=== PATIENT | male | born 1950 | race African-American/Black ===

== ENCOUNTER → 2018-11-27 | Outpatient (CLI) | payer MEDICARE, OTHER ==
--- NOTE | 2018-11-27 11:30 | RADIOLOGY REPORT (SQ) ---
EXAM DESCRIPTION: MRI LT UPPER JOINT WITHOUT COMPLETED DATE/TIME: 11/27/2018 9:56 am REASON FOR STUDY: L SHOULDER PAIN M25.512 PAIN IN LEFT SHOULDER COMPARISON: None. TECHNIQUE: Left shoulder images acquired and stored on PACS. Multiplanar imaging to include fat sens itive sequences such as T1, water sensitive sequences such as FST2/STIR, cartilage sensitive sequence s such as FSPD/gradient-echo sequences. LIMITATIONS: Patient motion. FINDINGS: BONE MARROW AND CORTEX: No worrisome bone lesions or marrow replacement. No occult fractur es. JOINT OR BURSAL EFFUSION: Small amount of fluid in the subdeltoid bursa containing loose bodies or hy droxyapatite. GLENO-HUMERAL ARTICULATION: Intact. Central cartilage loss. ACROMION AND AC JOINT: Type 2 acromion. Moderate AC joint arthropathy. ROTATOR CUFF AND INTERVAL: Cuff musculature is symmetric. Increased signal anterior supraspinatus co nsistent with full-thickness partial width tear. No rotator interval tear. No rotator interval thickening to suggest adhesive capsulitis. LABRUM AND BICEPS LABRAL COMPLEX: Increased signal in the biceps anchor. No acute tear identified. Distal biceps intact. REMAINDER OF LABRUM AND IGHL : Intact. PERIARTICULAR AND ADJACENT SOFT TISSUES: No masses or abnormal nodes. OTHER: No other significant finding. IMPRESSION: 1. Motion artifact. Partial width full-thickness tear anterior supraspinatus tendon. 2. Subdeltoid bursal fluid containing loose bodies or hydroxyapatite. 3. AC joint arthropathy. TECHNICAL DOCUMENTATION: JOB ID: [id number] [employer]- All Rights Reserved Reading location - IP/workstation name: [email or web address]
== END ==
LOC: RAD 09:12
PROVIDERS: ATTEND Orthopaedic Surgery Sports Medicine
DX: M25.512 Pain in left shoulder (principal)

== ENCOUNTER → 2018-11-30 | Outpatient (CLI) | payer MEDICARE, OTHER ==
[2018-11-30 11:37] LABS: ABSOLUTE EOSINOPHILS # (AUTO) 0.2 10^3/uL (0.0-0.6); ABSOLUTE LYMPHOCYTES (AUTO) 2.1 10^3/uL (0.5-4.7); ABSOLUTE MONOCYTES (AUTO) 0.4 10^3/uL (0.1-1.4); BASOPHILS % (AUTO) 0.7 % (0-2); EOSINOPHILS % (AUTO) 3.3 % (0-6); HEMATOCRIT 41.6 % (37.9-51.0); HEMOGLOBIN 13.9 g/dL (13.5-17.0); LYMPHOCYTES % (AUTO) 36.7 % (13-45); MEAN CORPUSCULAR HEMOGLOBIN 25.2 pg (27.0-33.4); MEAN CORPUSCULAR HGB CONC 33.3 g/dL (32.0-36.0); MEAN CORPUSCULAR VOLUME 76 fl (80-97); PLATELET COUNT 288 10^3/uL (150-450); RED CELL DISTRIBUTION WIDTH 14.4 % (11.5-14.0); SEGMENTED NEUTROPHILS % (AUTO) 52.3 % (42-78); TOTAL CELLS COUNTED % (AUTO) 100 %; WHITE BLOOD COUNT 5.8 10^3/uL (4.0-10.5)
[2018-11-30 12:03] LABS: ALANINE AMINOTRANSFERASE 15 U/L (21-72); ALBUMIN 4.2 g/dL (3.5-5.0); ALKALINE PHOSPHATASE 82 U/L (38-126); ANION GAP 8 (5-19); ASPARTATE AMINO TRANSFERASE 21 U/L (17-59); BILIRUBIN,DIRECT 0.2 mg/dL (0.0-0.4); BILIRUBIN,TOTAL 0.5 mg/dL (0.2-1.3); BLOOD UREA NITROGEN 10 mg/dL (7-20); CALCIUM 9.8 mg/dL (8.4-10.2); CARBON DIOXIDE 30 mmol/L (22-30); CHLORIDE 105 mmol/L (98-107); GLUCOSE 126 mg/dL (75-110); POTASSIUM 4.9 mmol/L (3.6-5.0); SODIUM 143.4 mmol/L (137-145); TOTAL PROTEIN 7.4 g/dL (6.3-8.2)
== END ==
LOC: OD 10:52
PROVIDERS: ATTEND Orthopaedic Surgery Sports Medicine
DX: Z11.2 Encounter for screening for other bacterial diseases (principal); M75.102 Unspecified rotator cuff tear or rupture of left shoulder, not specified as traumatic; I10 Essential (primary) hypertension
CPT/HCPCS: 36415; 80053; 85025; 87070

== ENCOUNTER 2020-05-20 17:51 | Emergency (ER) | payer MEDICARE, OTHER ==
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
[2020-05-20] MEDS ORDERED: HYDROCODONE/ACETAMINOPHEN 5-325 MG (6 TAB/ER DISP) PO PRN (19:48)
[2020-05-20 19:54] VITALS: BP 183/79
[2020-05-20 20:30] LABS: FREE T4 (FREE THYROXINE) 0.73 ng/dL (0.78-2.19)
[2020-05-20 20:43] LABS: THYROID STIMULATING HORMONE 5.15 uIU/mL (0.47-4.68)
== END 2020-05-20 21:41 | disposition home or self-care (01) ==
LOC: ER 17:51
DX: E07.9 Disorder of thyroid, unspecified (principal); E01.0 Iodine-deficiency related diffuse (endemic) goiter; S09.90XD Unspecified injury of head, subsequent encounter; W22.09XD Striking against other stationary object, subsequent encounter; I10 Essential (primary) hypertension; H53.8 Other visual disturbances; I25.10 Atherosclerotic heart disease of native coronary artery without angina pectoris; E11.9 Type 2 diabetes mellitus without complications; Z88.6 Allergy status to analgesic agent; Z88.0 Allergy status to penicillin; I25.2 Old myocardial infarction
CPT/HCPCS: 99284; 36415; 84439; 84443; 70450; 72125; A9270